=== PATIENT | male | born 1935 | race Caucasian/White ===

== ENCOUNTER → 2016-04-23 | Outpatient (CLI) | payer MEDICARE ==
[2015-09-26 15:00] VITALS: BP 127/77
[~2016-04-23] MED LIST: ALLO100T PO; AMIO200T2 PO; AMLO2.5T PO; ASPI325T11 PO; ASPI81TA2 PO; ASPI81TA9 PO; ATOR10TA60 PO; CARV6.25 PO; CARV6.252 PO; CLOP75TA27 PO; FLUT1DIS3 INH; FURO-69 PO; FURO20TA3 PO; LEVO250T25 PO; LISI-334 PO; LOSA1TAB18 PO; METO25TA4 PO; METR500T PO; MEXI200C PO; PRED-220 PO; SIMV20TA3 PO; SPIR25TA3 PO
--- NOTE | 2016-04-23 09:32 | KCIC ---
PROCEDURE Two-view chest. HISTORY Long-term amiodarone use. COMPARISON Two-view chest December 08, 2014 FINDINGS There is left chest dual chamber biventricular ICD. Median sternotomy wires and changes of prior CABG are stable. Atherosclerotic and mildly tortuous thoracic aorta. Stable mild cardiomegaly. Lungs are clear. No pleural effusion or pneumothorax. No acute bone abnormality. Thoracic spine findings compatible with diffuse idiopathic skeletal hyperostosis. IMPRESSION No acute cardiopulmonary process. Electronically signed by: Miles Waters MD (Apr 23, 2016 09:30:24)
== END | disposition home or self-care (01) ==
LOC: KCIC 09:01
PROVIDERS: ATTEND Internal Medicine Advanced Heart Failure and Transplant Cardiology
DX: I49.9 Cardiac arrhythmia, unspecified (principal); Z79.899 Other long term (current) drug therapy
CPT/HCPCS: 71020

== ENCOUNTER 2016-06-30 03:53 | Emergency (ER) | payer MEDICARE ==
[2015-09-26 15:00] VITALS: BP 127/77
[2016-06-30] MEDS ORDERED: EPINEPHrine SYRINGE 1 MG/10 ML SYRINGE IV ONE ×7 (04:30)
[2016-06-30] MEDS ORDERED: CALCIUM CHLORIDE 1,000 MG/10 ML DISP.SYRIN IV ONE ×2 (04:30→12:00)
--- NOTE | 2016-06-30 04:44 | PHYS DOC ---
Past Medical History Past Medical History: CAD, Heart Disease, Hypertension, Other Additional Past Medical Histor: ischemic cardiomyopathy, chronic systolic Heart failure, Past Surgical History: Angioplasty, Coronary Bypass Surgery, Other Additional Past Surgical Histo: stent, ICD Alcohol Use: None Drug Use: None Adult General Chief Complaint Chief Complaint: CPR/FULL ARREST HPI HPI Patient is a 80 year old male who presents with cardiac arrest. The patient is unable to provide history due to clinical condition. Paramedics report that the patient's heard him fall down the steps at home, approximately 10 stairs. She found him unresponsive & pulseless at the bottom of the stairs. 911 instructed her to begin CPR which was in progress when EMS arrived. They continued CPR, intubated, administered epi for asystole/PEA. No shocks administered, no ROSC. CPR in progress at time of arrival. Review of Systems Review of Systems unable to obtain due to clinical condition. Current Medications Current Medications Current Medications Medications (Trade) Dose Ordered Sig/Tangela Start Time Stop Time Status Last Admin Dose Admin Calcium Chloride 1,000 mg 1X ONCE 06/30/16 04:30 06/30/16 04:43 DC 06/30/16 04:07 1,000 MG Epinephrine HCl (EPINEPHrine SYRINGE) 1 mg 1X ONCE 06/30/16 04:30 06/30/16 04:44 DC 06/30/16 04:11 1 MG Sodium Chloride 1,000 ml @ 1,000 mls/hr 1X ONCE 06/30/16 04:45 06/30/16 05:42 DC 06/30/16 04:10 1,000 MLS/HR Allergies Allergies Allergies Coded Allergies Type Severity Reaction Last Updated Verified piperacillin Allergy Intermediate Blister like rash 09/21/15 Yes STEFANIA Inhibitors Adverse Reaction Intermediate cough 09/16/15 Yes Physical Exam Physical Exam Constitutional: unresponsive, CPR in progress HENT: Normocephalic, atraumatic, bilateral external ears normal, oropharynx moist, nose normal. Eyes: pupils 2 mm bilaterally, not responsive, left eye cloudy cornea. Neck: supple, no stridor. Cardiovascular: pulseless, chest compressions being performed. Lungs & Thorax: apneic, intubated, breath sounds present bilaterally with bagging Abdomen: soft, nontender, nondistended. Skin: Warm, dry, no erythema, no rash. abrasions to right knee Extremities: No obvious deformity, right tibial IO. Neurologic: GCS 3 EKG EKG interpreted by me: irregular rate 80, paced Radiology/Procedures Radiology/Procedures [] Course & Med Decision Making Course & Med Decision Making Pertinent Labs and Imaging studies reviewed. (See chart for details) The patient presents with cardiac arrest. CPR in progress, continued upon arrival. Intubated in the field, breath sounds present bilaterally upon arrival. Pulse checks showed PEA, continued epinephrine. On several occasions he had brief ROSC lasting seconds to minutes, but never sustained. We were able to obtain an EKG as documented above, paced, possible sine wave appearance , gave calcium gluconate. Glucose was within normal limits. The patient met criteria for trauma activation based on fall down stairs. He had clear breath sounds bilaterally, & I attempted FAST which did not show obvious pericardial tamponade or intraabdominal hemorrhage. After several unsustained ROSC & over 1 hour of attempted resuscitation, 3 subsequent pulse checks showed PEA. All resuscitative efforts were terminated at that time & time of was called at 0414. I did discuss with the patient's & son. His PCP was Dr. Lindsay. I discussed with Dr. Cameron, & Dr. Lindsay will sign certificate. No need for autopsy per Dr. Cameron. The patient & [place] [facility] [place] Critical care time: 60 minutes Maxwell Disclaimer Dragon Disclaimer This electronic medical record was generated, in whole or in part, using a voice recognition dictation system. Departure Departure Impression: Primary Impression: Cardiac arrest Additional Impression: Fall down stairs Disposition: 20 Condition: Problem Qualifiers RENO GUSMAN MD June 30, 2016 04:44
[2016-06-30] MEDS ORDERED: IV NORMAL SALINE 1000ML BAG 1,000 ML IV ONE (04:45)
[2016-06-30 09:57] LABS: POTASSIUM ISTAT 3.7 mmol/L (3.5-5.0)
--- NOTE | 2016-06-30 10:17 | EKG ---
[facility] [address] [place] [address] Test Date: 2016-06-30 Test Time: 03:59:38 Pat Name: MARLI SAWANT Department: Room: Gender: M [employer] Supervisor: : [id number] Requested By: RENO GUSMAN Order Number: [id number] Reading MD: Harpal Claudio Measurements Intervals Forgan Rate: 200 P: NE: QRS: -6 QRSD: 36 T: -31 QT: 276 QTc: 511 Interpretive Statements SUSPECT A-V PACING Electronically Signed On 07-05-2016 13:50:01 CDT by Harpal Claudio
[2016-06-30] MEDS ORDERED: EPINEPHrine SYRINGE 1 MG/10 ML SYRINGE ONE (12:00)
[2016-06-30] MEDS ORDERED: EPINEPHrine VIAL 30 MG/30 ML VIAL ONE (12:00)
== END 2016-06-30 05:32 | disposition expired ==
LOC: ER 03:53
DX: I46.9 Cardiac arrest, cause unspecified (principal); S80.211A Abrasion, right knee, initial encounter; I11.0 Hypertensive heart disease with heart failure; I50.22 Chronic systolic (congestive) heart failure; I25.10 Atherosclerotic heart disease of native coronary artery without angina pectoris; Z95.1 Presence of aortocoronary bypass graft; Z98.61 Coronary angioplasty status; Z88.1 Allergy status to other antibiotic agents; Z88.8 Allergy status to other drugs, medicaments and biological substances; W10.9XXA Fall (on) (from) unspecified stairs and steps, initial encounter; Y93.89 Activity, other specified; Y92.098 Other place in other non-institutional residence as the place of occurrence of the external cause; Y99.8 Other external cause status
CPT/HCPCS: 31500; 80047; 84484; 92950; 93005; 99291; J0171; J3490; J7030